=== PATIENT | male | born 1940 | race Caucasian/White ===

== ENCOUNTER 2016-08-21 13:22 | Outpatient (CLI) | payer MEDICARE, OTHER | END 2016-08-21 13:23 | disposition home or self-care (01) | DX: G47.33 Obstructive sleep apnea (adult) (pediatric) (principal); G47.31 Primary central sleep apnea | CPT/HCPCS: 99214; G0463 ==

== ENCOUNTER 2016-09-24 11:19 | Outpatient (CLI) | payer MEDICARE, OTHER | END 2016-09-24 11:20 | disposition home or self-care (01) | DX: G47.33 Obstructive sleep apnea (adult) (pediatric) (principal) | CPT/HCPCS: 99214; G0463 ==

== ENCOUNTER 2016-10-27 13:55 | Outpatient (CLI) | payer MEDICARE, OTHER | END 2016-10-27 13:56 | disposition home or self-care (01) | DX: G47.33 Obstructive sleep apnea (adult) (pediatric) (principal) | CPT/HCPCS: 99214; G0463 ==

== ENCOUNTER 2016-11-21 06:08 | Outpatient (CLI) | payer MEDICARE, OTHER | END 2016-11-21 06:09 | disposition critical access hospital (66) | DX: R09.89 Other specified symptoms and signs involving the circulatory and respiratory systems (principal); R25.9 Unspecified abnormal involuntary movements | CPT/HCPCS: A0425; A0429 ==

== ENCOUNTER 2016-11-21 06:30 | Emergency (ER) | payer MEDICARE, OTHER ==
[2016-11-21] MEDS ORDERED: SODIUM CHLORIDE 0.9% 500 ML IV ONE (08:17)
== END 2016-11-21 10:06 | disposition home or self-care (01) ==
DX: I48.2 Chronic atrial fibrillation (principal); Z79.01 Long term (current) use of anticoagulants; R00.2 Palpitations; G47.30 Sleep apnea, unspecified; I10 Essential (primary) hypertension; G20 Parkinson's disease; Z79.82 Long term (current) use of aspirin

== ENCOUNTER 2016-12-15 13:26 | Outpatient (CLI) | payer MEDICARE, OTHER | END 2016-12-15 13:27 | disposition home or self-care (01) | LOC: SC 13:26 | PROVIDERS: ATTEND Nurse Practitioner Family | DX: G47.33 Obstructive sleep apnea (adult) (pediatric) (principal) | CPT/HCPCS: 99214; G0463; 99212 ==

== ENCOUNTER 2017-01-21 14:54 | Outpatient (CLI) | payer MEDICARE, OTHER | END 2017-01-21 14:55 | disposition home or self-care (01) | LOC: SC 14:54 | PROVIDERS: ATTEND Nurse Practitioner Family | DX: G47.33 Obstructive sleep apnea (adult) (pediatric) (principal) | CPT/HCPCS: 99214; G0463; 99212 ==

== ENCOUNTER 2017-03-03 10:51 | Outpatient (CLI) | payer MEDICARE, OTHER | END 2017-03-03 10:52 | disposition home or self-care (01) | LOC: SC 10:51 | PROVIDERS: ATTEND Nurse Practitioner Family | DX: G47.33 Obstructive sleep apnea (adult) (pediatric) (principal); G47.31 Primary central sleep apnea; G47.00 Insomnia, unspecified | CPT/HCPCS: 99214; G0463; 99212 ==

== ENCOUNTER 2017-04-01 11:28 | Outpatient (CLI) | payer MEDICARE, OTHER | END 2017-04-01 11:29 | disposition home or self-care (01) | LOC: SC 11:28 | PROVIDERS: ATTEND Nurse Practitioner Family | DX: G47.33 Obstructive sleep apnea (adult) (pediatric) (principal) | CPT/HCPCS: 99214; G0463; 99212 ==

== ENCOUNTER 2017-06-01 15:22 | Outpatient (CLI) | payer MEDICARE, OTHER | END 2017-06-01 15:23 | disposition home or self-care (01) | LOC: SC 15:22 | PROVIDERS: ATTEND Nurse Practitioner Family | DX: G47.33 Obstructive sleep apnea (adult) (pediatric) (principal) | CPT/HCPCS: 99214; G0463; 99212 ==

== ENCOUNTER 2017-06-04 21:59 | Outpatient (CLI) | payer MEDICARE, OTHER | END 2017-06-04 22:00 | disposition home or self-care (01) | LOC: SC 21:59 | PROVIDERS: ATTEND Internal Medicine Pulmonary Disease | DX: G47.33 Obstructive sleep apnea (adult) (pediatric) (principal); Z68.28 Body mass index [BMI] 28.0-28.9, adult; I48.91 Unspecified atrial fibrillation | CPT/HCPCS: 95811 ==

== ENCOUNTER 2017-07-06 10:15 | Outpatient (CLI) | payer MEDICARE, OTHER | END 2017-07-06 10:16 | disposition home or self-care (01) | LOC: SC 10:15 | PROVIDERS: ATTEND Internal Medicine Pulmonary Disease | DX: G47.33 Obstructive sleep apnea (adult) (pediatric) (principal) | CPT/HCPCS: 99213; G0463; 99212 ==

== ENCOUNTER 2017-08-07 13:49 | Outpatient (CLI) | payer MEDICARE, OTHER ==
[2017-08-07 19:23] LABS: CALCIUM 9.6 mg/dL (8.5-10.3); CREATININE 1.1 mg/dL (0.6-1.2)
== END 2017-08-07 13:50 | disposition home or self-care (01) ==
LOC: LAB.WCP 13:49
PROVIDERS: ATTEND Internal Medicine Cardiovascular Disease
DX: I48.2 Chronic atrial fibrillation (principal)
CPT/HCPCS: 36415; 80048

== ENCOUNTER 2018-02-09 22:41 | Outpatient (CLI) | payer MEDICARE, OTHER | END 2018-02-09 22:42 | disposition critical access hospital (66) | LOC: EMS 22:41 | PROVIDERS: ATTEND Surgery | DX: R53.1 Weakness (principal); W07.XXXA Fall from chair, initial encounter; Y92.008 Other place in unspecified non-institutional (private) residence as the place of occurrence of the external cause | CPT/HCPCS: A0425; A0429 ==

== ENCOUNTER 2018-02-09 23:02 | Emergency (ER) | payer MEDICARE, OTHER ==
[2018-02-10 00:26] LABS: BASOPHILS # (AUTO) 0.1 10^3/uL (0.0-0.1); BASOPHILS % (AUTO) 0.7 %; EOSINOPHILS # (AUTO) 0.1 10^3/uL (0.0-0.7); EOSINOPHILS % (AUTO) 1.1 %; HGB - HEMOGLOBIN 12.2 g/dL (14.0-18.0); LYMPHOCYTES # (AUTO) 0.9 10^3/uL (1.5-3.5); LYMPHOCYTES % (AUTO) 9.4 %; MEAN CORPUSCULAR HEMOGLOBIN 31.5 pg (27.0-31.0); MEAN CORPUSCULAR HGB CONC 33.3 g/dL (32.0-36.0); MEAN CORPUSCULAR VOLUME 94.6 fL (80.0-94.0); MEAN PLATELET VOLUME 8.8 fL (7.4-11.4); MONOCYTES # (AUTO) 0.9 10^3/uL (0.0-1.0); MONOCYTES % (AUTO) 8.8 %; NEUTROPHILS # (AUTO) 8.1 10^3/uL (1.5-6.6); PLT - PLATELET COUNT 235 10^3/uL (130-450); RED BLOOD COUNT 3.89 10^6/uL (4.70-6.10); WHITE BLOOD COUNT 10.1 x10^3/uL (4.8-10.8)
[2018-02-10 00:33] LABS: ALBUMIN 3.6 g/dL (3.2-5.5); ALBUMIN/GLOBULIN RATIO 0.9 (1.0-2.2); ALKALINE PHOSPHATASE 73 IU/L (42-121); ALT ALANINE AMINOTRANSFERASE < 10 IU/L (10-60); AST ASPARTATE AMINOTRANSFERASE 31 IU/L (10-42); BILIRUBIN,TOTAL 0.6 mg/dL (0.2-1.0); BUN - BLOOD UREA NITROGEN 31 mg/dL (6-20); CALCIUM 9.1 mg/dL (8.5-10.3); CARBON DIOXIDE - CO2 30 mmol/L (21-32); CHLORIDE 99 mmol/L (101-111); CREATININE 1.8 mg/dL (0.6-1.2); GFR - MDRD 37 (>89); GLUCOSE 130 mg/dL (70-100); LIPASE 33 U/L (22-51); SODIUM 139 mmol/L (135-145); TOTAL PROTEIN 7.5 g/dL (6.7-8.2)
--- NOTE | 2018-02-10 01:14 | ED Physician Documentation ---
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 This evening, he was working in his house when he generalized increased shaking and weakness, particularly bilateral lower extremities. He rapidly became too weak to stand, sat down (did not fall). He could not get back up and thus 911 called by spouse. Review of Systems Constitutional: denies: Fever, Chills, Sweats Cardiac: reports: Reviewed and negative Respiratory: reports: Reviewed and negative GI: reports: Reviewed and negative : denies: Dysuria, Frequency Musculoskeletal: reports: Reviewed and negative Neurologic: reports: Generalized weakness. 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 INFORMATICS SPEC: Other (Radical Prostatectomy) Cardiovascular: Coronary stent - Present Medications Home Medications: Ambulatory Orders Medication Instructions Recorded Confirmed Aspirin [Aspir 81] 81 mg PO DAILY 12/29/12 11/21/16 Bumetanide [Bumex] 2 mg PO QDBREAKFAST 12/29/12 11/21/16 Carbidopa/Levodopa 0 mg PO TID 12/29/12 11/21/16 [Carbidopa-Levodopa 25-100 Tab] Metoprolol Succinate [Toprol Xl] 25 mg PO DAILY 12/29/12 11/21/16 Selegiline HCl 5 mg PO BID 12/29/12 11/21/16 Warfarin Sodium [Coumadin] 0.5 mg PO DAILY 12/29/12 11/21/16 raNITIdine [Zantac] 150 mg PO BID 03/17/14 11/21/16 Cholecalciferol (Vitamin D3) 1 cap PO DAILY 11/21/16 11/21/16 [Vitamin D3] Docusate Sodium 250Mg Capsule 1 cap PO DAILY 11/21/16 11/21/16 [Colace 250Mg Capsule] Senna [Senokot] 1 tab PO DAILY 11/21/16 11/21/16 Bumetanide [Bumex] 1 mg PO QDDINNER 02/10/18 02/10/18 - Allergies Allergies/Adverse Reactions: Allergies Allergy/AdvReac Type Severity Reaction Status Date / Time hydrochlorothiazide AdvReac Intermediate "drains Verified 02/10/18 01:46 all the fluid out of me" lisinopril AdvReac Intermediate cough/aches Verified 02/10/18 01:46 Penicillins AdvReac Edema Verified 02/10/18 01:46 simvastatin [From Zocor] AdvReac Unknown Verified 02/10/18 01:46 - Social History Does the pt smoke?: No Smoking Status: Never smoker Does the pt drink ETOH?: Yes Does the pt have substance abuse?: No - Immunizations Immunizations are current?: No - POLST Patient has POLST: No PD ED PE NORMAL - Vitals Vital signs reviewed: Yes - General General: Alert and oriented X 3, No acute distress, Well developed/nourished - HEENT HEENT: PERRL, EOMI, Other (dry mucous membranes) - Neck Neck: Supple, no meningeal sign - Cardiac Cardiac: RRR - Respiratory Respiratory: No respiratory distress, Clear bilaterally - Abdomen Abdomen: Soft, Non tender - Extremities Extremities: No edema - Neuro Neuro: Alert and oriented X 3, senior python developer 2-12 intact, Other (5/5 bilateral metal finisher strength, 4/5 bilateral dorsi/plantarflexion) Eye Opening: Spontaneous Motor: Obeys Commands Verbal: Oriented GCS Score: 15 Results - Vitals Vitals: Oxygen O2 Source [With Activity] Room air O2 Source Room air - Labs Labs: Laboratory Tests 02/10/18 02/10/18 02/10/18 00:09 00:09 00:09 WBC 10.1 RBC 3.89 L Hgb 12.2 L Hct 36.8 L MCV 94.6 H MCH 31.5 H MCHC 33.3 RDW 15.0 Plt Count 235 MPV 8.8 Neut # (Auto) 8.1 H Lymph # (Auto) 0.9 L [place] # (Auto) 0.9 Eos # (Auto) 0.1 Baso # (Auto) 0.1 Absolute Nucleated RBC 0.00 Nucleated RBC % 0.0 PT INR APTT Sodium 139 Potassium 3.8 Chloride 99 L Carbon Dioxide 30 Anion Gap 10.0 BUN 31 H Creatinine 1.8 H Estimated GFR (MDRD) 37 L Glucose 130 H Calcium 9.1 Magnesium 2.0 Total Bilirubin 0.6 AST 31 ALT < 10 L Alkaline Phosphatase 73 Troponin I < 0.04 B-Natriuretic Peptide Total Protein 7.5 Albumin 3.6 Globulin 3.9 Albumin/Globulin Ratio 0.9 L Lipase 33 Urine Color Urine Clarity Urine pH Ur Specific [place] Urine Protein Urine Glucose (UA) Urine Ketones Urine Occult Blood Urine Nitrite Urine Bilirubin Urine Urobilinogen Ur Leukocyte Esterase Ur Microscopic Review Urine Culture Comments 02/10/18 02/10/18 02/10/18 00:09 00:09 01:29 WBC RBC Hgb Hct MCV MCH MCHC RDW Plt Count MPV Neut # (Auto) Lymph # (Auto) [place] # (Auto) Eos # (Auto) Baso # (Auto) Absolute Nucleated RBC Nucleated RBC % PT 35.7 H INR 3.3 H APTT 32.0 Sodium Potassium Chloride Carbon Dioxide Anion Gap BUN Creatinine Estimated GFR (MDRD) Glucose Calcium Magnesium Total Bilirubin AST ALT Alkaline Phosphatase Troponin I B-Natriuretic Peptide 71 Total Protein Albumin Globulin Albumin/Globulin Ratio Lipase Urine Color YELLOW Urine Clarity CLEAR Urine pH 6.0 Ur Specific [place] 1.010 Urine Protein NEGATIVE Urine Glucose (UA) NEGATIVE Urine Ketones NEGATIVE Urine Occult Blood NEGATIVE Urine Nitrite NEGATIVE Urine Bilirubin NEGATIVE Urine Urobilinogen 0.2 (NORMAL) Ur Leukocyte Esterase NEGATIVE Ur Microscopic Review NOT INDICATED Urine Culture Comments NOT INDICATED PD MEDICAL DECISION MAKING - ED course Complexity details: reviewed results, re-evaluated patient, considered differential, d/w patient, d/w family ED course: patient improved during ED stay, seemed to correlate with IV fluids. mucous membranes were moist on reexam, and he was able to stand and bear weight and was at his baseline strength (per patient and spouse) on reevaluation. - Sepsis Event Vital Signs: Oxygen O2 Source [With Activity] Room air O2 Source Room air Departure - Departure Disposition: 01 Home, Self Care Clinical Impression: Weakness Condition: Good Instructions: ED Weakness [facility] Follow-Up: Rex Moncada MD [Primary Care Provider] - Discharge Date/Time: 02/10/18 03:17
[2018-02-10] MEDS ORDERED: SODIUM CHLORIDE 0.9% 1,000 ML IV STA (01:26)
[2018-02-10 01:39] LABS: BILIRUBIN,URINE NEGATIVE (NEGATIVE); GLUCOSE, URINE (UA) NEGATIVE (NEGATIVE); KETONES,URINE (UA) NEGATIVE (NEGATIVE); LEUKOCYTE ESTERASE, URINE NEGATIVE (NEGATIVE); NITRITE,URINE NEGATIVE (NEGATIVE); OCCULT BLOOD,URINE NEGATIVE (NEGATIVE); PROTEIN,URINE NEGATIVE (NEGATIVE); UROBILINOGEN,URINE 0.2 (NORMAL) E.U./dL (NORMAL)
[2018-02-10 01:40] LABS: CLARITY,URINE CLEAR (CLEAR)
[2018-02-10 01:41] LABS: INR 3.3 (0.8-1.2); PT - PROTHROMBIN TIME 35.7 secs (9.9-12.6)
[2018-02-10 03:16] VITALS: BP 167/72
== END 2018-02-10 03:17 | disposition home or self-care (01) ==
LOC: EDUNIT# → SUPCPDRO 23:02 → ED 23:02
DX: R53.1 Weakness (principal); G20 Parkinson's disease; I10 Essential (primary) hypertension; Z79.01 Long term (current) use of anticoagulants; Z79.82 Long term (current) use of aspirin; I48.91 Unspecified atrial fibrillation
CPT/HCPCS: 36415; 80053; 81001; 81003; 83690; 83735; 83880; 84484; 85025; 85610; 85730; 87086; 96360; 99283; 99284

== ENCOUNTER 2018-04-19 11:24 | Outpatient (CLI) | payer MEDICARE, OTHER | END 2018-04-19 11:25 | disposition short-term general hospital (02) | LOC: EMS 11:24 | PROVIDERS: ATTEND Surgery | DX: R07.9 Chest pain, unspecified (principal) | CPT/HCPCS: A0425; A0427; A0888 ==

== ENCOUNTER 2018-10-13 08:00 | Outpatient (CLI) | payer MEDICARE, OTHER | END 2018-10-13 23:59 | disposition home or self-care (01) | LOC: LAB.WCP 08:00 | PROVIDERS: ATTEND Family Medicine | DX: I48.91 Unspecified atrial fibrillation (principal); Z79.01 Long term (current) use of anticoagulants ==

== ENCOUNTER 2018-11-17 08:00 | Outpatient (CLI) | payer MEDICARE, OTHER ==
[2018-11-17 12:28] LABS: BASOPHILS % (AUTO) 0.5 %; EOSINOPHILS # (AUTO) 0.2 10^3/uL (0.0-0.7); EOSINOPHILS % (AUTO) 2.9 %; HGB - HEMOGLOBIN 12.5 g/dL (14.0-18.0); LYMPHOCYTES # (AUTO) 1.6 10^3/uL (1.5-3.5); LYMPHOCYTES % (AUTO) 23.1 %; MEAN CORPUSCULAR HEMOGLOBIN 30.6 pg (27.0-31.0); MEAN CORPUSCULAR HGB CONC 32.9 g/dL (32.0-36.0); MEAN PLATELET VOLUME 8.4 fL (7.4-11.4); MONOCYTES # (AUTO) 0.6 10^3/uL (0.0-1.0); MONOCYTES % (AUTO) 9.1 %; NEUTROPHILS # (AUTO) 4.6 10^3/uL (1.5-6.6); NEUTROPHILS % (AUTO) 64.4 %; PLT - PLATELET COUNT 240 10^3/uL (130-450); WHITE BLOOD COUNT 7.1 x10^3/uL (4.8-10.8)
[2018-11-17 13:39] LABS: ALBUMIN 3.7 g/dL (3.2-5.5); ALKALINE PHOSPHATASE 71 IU/L (42-121); ALT ALANINE AMINOTRANSFERASE < 10 IU/L (10-60); AST ASPARTATE AMINOTRANSFERASE 21 IU/L (10-42); BILIRUBIN,TOTAL 0.8 mg/dL (0.2-1.0); BUN - BLOOD UREA NITROGEN 25 mg/dL (6-20); CALCIUM 9.1 mg/dL (8.5-10.3); CARBON DIOXIDE - CO2 33 mmol/L (21-32); CHLORIDE 98 mmol/L (101-111); CHOL/HDL RATIO 3.2 (<5.0); CHOLESTEROL 174 mg/dL; CREATININE 1.1 mg/dL (0.6-1.2); GFR - MDRD 64 (>89); GLUCOSE 101 mg/dL (70-100); HDL CHOLESTEROL 54 mg/dL; LDL CHOLESTEROL,CALCULATED 97 mg/dL; LDL/HDL RATIO 1.8 (<3.6); SODIUM 138 mmol/L (135-145); TOTAL PROTEIN 7.4 g/dL (6.7-8.2); VLDL CHOLESTEROL 23 mg/dL
== END 2018-11-17 23:59 | disposition home or self-care (01) ==
LOC: LAB.WCP 08:00
PROVIDERS: ATTEND Family Medicine
DX: E78.5 Hyperlipidemia, unspecified (principal); I10 Essential (primary) hypertension
CPT/HCPCS: 36415; 80053; 80061; 83721; 85025

== ENCOUNTER 2018-12-07 09:16 | Outpatient (CLI) | payer MEDICARE, OTHER ==
[2018-12-07 12:39] LABS: BASOPHILS % (AUTO) 0.5 %; EOSINOPHILS # (AUTO) 0.3 10^3/uL (0.0-0.7); HGB - HEMOGLOBIN 12.4 g/dL (14.0-18.0); LYMPHOCYTES # (AUTO) 1.8 10^3/uL (1.5-3.5); LYMPHOCYTES % (AUTO) 25.6 %; MEAN CORPUSCULAR HEMOGLOBIN 30.5 pg (27.0-31.0); MEAN CORPUSCULAR HGB CONC 32.8 g/dL (32.0-36.0); MEAN CORPUSCULAR VOLUME 92.7 fL (80.0-94.0); MEAN PLATELET VOLUME 8.5 fL (7.4-11.4); MONOCYTES # (AUTO) 0.8 10^3/uL (0.0-1.0); MONOCYTES % (AUTO) 11.8 %; NEUTROPHILS % (AUTO) 58.1 %; PLT - PLATELET COUNT 257 10^3/uL (130-450); RED BLOOD COUNT 4.07 10^6/uL (4.70-6.10); RED CELL DISTRIBUTION WIDTH 15.1 % (12.0-15.0)
[2018-12-07 12:59] LABS: % IRON SATURATION 25 % (20-50); IRON 71 ug/dL (45-182); TOTAL IRON BINDING CAPACITY 281 ug/dL (250-450); TRANSFERRIN 201 mg/dL (180-329)
== END 2018-12-07 09:17 | disposition home or self-care (01) ==
LOC: LAB.WCP 09:16
PROVIDERS: ATTEND Family Medicine
DX: D64.9 Anemia, unspecified (principal); M79.671 Pain in right foot; R26.2 Difficulty in walking, not elsewhere classified; M25.474 Effusion, right foot
CPT/HCPCS: 36415; 82607; 82728; 82746; 83540; 84466; 84550; 85025

== ENCOUNTER 2018-12-16 07:09 | Outpatient (CLI) | payer MEDICARE, OTHER | END 2018-12-16 23:59 | disposition home or self-care (01) | LOC: LAB.R 07:09 | PROVIDERS: ATTEND Family Medicine | DX: Z12.11 Encounter for screening for malignant neoplasm of colon (principal) | CPT/HCPCS: 82274 ==

== ENCOUNTER 2019-03-18 08:00 | Outpatient (CLI) | payer MEDICARE, OTHER | END 2019-03-18 23:59 | disposition home or self-care (01) | LOC: LAB.WCP 08:00 | PROVIDERS: ATTEND Family Medicine | DX: I48.91 Unspecified atrial fibrillation (principal); Z79.01 Long term (current) use of anticoagulants ==

== ENCOUNTER 2019-04-08 08:00 | Outpatient (CLI) | payer MEDICARE, OTHER | END 2019-04-08 23:59 | disposition home or self-care (01) | LOC: LAB.WCP 08:00 | PROVIDERS: ATTEND Family Medicine | DX: I48.91 Unspecified atrial fibrillation (principal); Z79.01 Long term (current) use of anticoagulants ==

== ENCOUNTER 2019-05-09 08:00 | Outpatient (CLI) | payer MEDICARE, OTHER | END 2019-05-09 23:59 | disposition home or self-care (01) | LOC: LAB.WCP 08:00 | PROVIDERS: ATTEND Physician Assistant Medical | DX: I48.91 Unspecified atrial fibrillation (principal); Z79.01 Long term (current) use of anticoagulants ==

== ENCOUNTER 2019-06-09 08:00 | Outpatient (CLI) | payer MEDICARE, OTHER | END 2019-06-09 23:59 | disposition home or self-care (01) | LOC: LAB.WCP 08:00 | PROVIDERS: ATTEND Physician Assistant Medical | DX: I48.91 Unspecified atrial fibrillation (principal); Z79.01 Long term (current) use of anticoagulants ==

== ENCOUNTER 2019-07-05 08:00 | Outpatient (CLI) | payer MEDICARE, OTHER | END 2019-07-05 23:59 | disposition home or self-care (01) | LOC: LAB.WCP 08:00 | PROVIDERS: ATTEND Physician Assistant Medical | DX: I48.91 Unspecified atrial fibrillation (principal); Z79.01 Long term (current) use of anticoagulants ==

== ENCOUNTER 2019-07-21 15:00 | Outpatient (CLI) | payer MEDICARE, OTHER ==
[2019-07-21 18:56] LABS: BASOPHILS # (AUTO) 0.1 10^3/uL (0.0-0.1); BASOPHILS % (AUTO) 0.8 %; EOSINOPHILS # (AUTO) 0.2 10^3/uL (0.0-0.7); EOSINOPHILS % (AUTO) 2.8 %; HGB - HEMOGLOBIN 12.2 g/dL (14.0-18.0); LYMPHOCYTES # (AUTO) 1.6 10^3/uL (1.5-3.5); LYMPHOCYTES % (AUTO) 21.9 %; MEAN CORPUSCULAR HEMOGLOBIN 30.3 pg (27.0-31.0); MEAN CORPUSCULAR HGB CONC 31.9 g/dL (32.0-36.0); MEAN CORPUSCULAR VOLUME 94.8 fL (80.0-94.0); MEAN PLATELET VOLUME 10.6 fL (7.4-11.4); MONOCYTES # (AUTO) 0.7 10^3/uL (0.0-1.0); NEUTROPHILS # (AUTO) 4.7 10^3/uL (1.5-6.6); NEUTROPHILS % (AUTO) 64.1 %; PLT - PLATELET COUNT 225 10^3/uL (130-450); RED BLOOD COUNT 4.03 10^6/uL (4.70-6.10); RED CELL DISTRIBUTION WIDTH 14.5 % (12.0-15.0); WHITE BLOOD COUNT 7.4 x10^3/uL (4.8-10.8)
== END 2019-07-21 23:59 | disposition home or self-care (01) ==
LOC: LAB.WCP 15:00
PROVIDERS: ATTEND Physician Assistant Medical
DX: D64.9 Anemia, unspecified (principal)
CPT/HCPCS: 36415; 85025

== ENCOUNTER 2019-08-01 08:00 | Outpatient (CLI) | payer MEDICARE, OTHER | END 2019-08-01 23:59 | disposition home or self-care (01) | LOC: LAB.WCP 08:00 | PROVIDERS: ATTEND Physician Assistant Medical | DX: I48.91 Unspecified atrial fibrillation (principal); Z79.01 Long term (current) use of anticoagulants ==

== ENCOUNTER 2019-08-29 08:00 | Outpatient (CLI) | payer MEDICARE, OTHER | END 2019-08-29 23:59 | disposition home or self-care (01) | LOC: LAB.WCP 08:00 | PROVIDERS: ATTEND Physician Assistant Medical | DX: Z79.01 Long term (current) use of anticoagulants (principal); I48.91 Unspecified atrial fibrillation ==

== ENCOUNTER 2019-09-09 15:08 | Outpatient (CLI) | payer MEDICARE, OTHER | END 2019-09-09 15:09 | disposition critical access hospital (66) | LOC: EMS 15:08 | PROVIDERS: ATTEND Surgery | DX: R42 Dizziness and giddiness (principal); R07.9 Chest pain, unspecified | CPT/HCPCS: A0425; A0429 ==

== ENCOUNTER 2019-09-09 15:30 | Emergency (ER) | payer MEDICARE, OTHER ==
[2019-09-09] MEDS ORDERED: ASPIRIN CHEW 81 MG TABLET PO STA (15:44)
--- NOTE | 2019-09-09 15:47 | ED Physician Documentation ---
PD HPI CHEST PAIN - Stated complaint Stated Complaint: NEAR SYNCOPE - Chief complaint Chief Complaint: Neuro - History obtained from History obtained from: Patient (79-year-old gentleman with history of atrial fibrillation on warfarin, history of coronary disease with a single stent in the LAD about 5 years ago. He was in his usual state of health at home on the toilet when he started to have about a 20-minute episode of left-sided subste rnal chest pressure that was nonradiating. It was associated with dizziness and near syncope. Now feels back to normal.) Review of Systems Ten Systems: 10 systems reviewed and negative Constitutional: denies: Fever, Chills Throat: denies: Dental pain / toothache, Sore throat Cardiac: reports: Chest pain / pressure, Pedal edema (chronic). 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 (Radical Prostatectomy) Cardiovascular: Coronary stent - Present Medications Home Medications: Ambulatory Orders Medication Instructions Recorded Confirmed Aspirin [Aspir 81] 81 mg PO DAILY 12/29/12 09/09/19 Bumetanide [Bumex] 2 mg PO QDBREAKFAST 12/29/12 09/09/19 Carbidopa/Levodopa 0 mg PO TID 12/29/12 09/09/19 [Carbidopa-Levodopa 25-100 Tab] Metoprolol Succinate [Toprol Xl] 25 mg PO DAILY 12/29/12 09/09/19 Selegiline HCl 5 mg PO BID 12/29/12 09/09/19 Warfarin Sodium [Coumadin] 0.5 mg PO DAILY 12/29/12 09/09/19 raNITIdine [Zantac] 150 mg PO BID 03/17/14 09/09/19 Cholecalciferol (Vitamin D3) 1 cap PO DAILY 11/21/16 09/09/19 [Vitamin D3] Docusate Sodium 250Mg Capsule 1 cap PO DAILY 11/21/16 09/09/19 [Colace 250Mg Capsule] Senna [Senokot] 1 tab PO DAILY 11/21/16 09/09/19 Bumetanide [Bumex] 1 mg PO QDDINNER 02/10/18 02/10/18 Nitroglycerin [Nitrostat] 0.4 mg SL 09/09/19 Potassium Chloride [Micro-K] 10 meq PO 09/09/19 Tolterodine [Detrol LA] 2 mg PO ONCE 09/09/19 09/09/19 - Allergies Allergies/Adverse Reactions: Allergies Allergy/AdvReac Type Severity Reaction Status Date / Time hydrochlorothiazide AdvReac Intermediate "drains Verified 09/09/19 15:42 all the fluid out of me" lisinopril AdvReac Intermediate cough/aches Verified 09/09/19 15:42 Penicillins AdvReac Edema Verified 09/09/19 15:42 simvastatin [From Zocor] AdvReac Unknown Verified 09/09/19 15:42 - Social History Does the pt smoke?: No Smoking Status: Never smoker Does the pt drink ETOH?: Yes Does the pt have substance abuse?: No - Family History Family history: reports: Non contributory - Immunizations Immunizations are current?: No - POLST Patient has POLST: No PD ED PE NORMAL - Vitals Vital signs reviewed: Yes - General General: Alert and oriented X 3, No acute distress - HEENT HEENT: PERRL, EOMI - Neck Neck: Supple, no meningeal sign, No bony TTP - Cardiac Cardiac: No murmur, Other (Irregularly irregular) - Respiratory Respiratory: No respiratory distress, Clear bilaterally - Abdomen Abdomen: Non tender - Back Back: No CVA TTP, No spinal TTP - Derm Derm: Normal color, Warm and dry - Extremities Extremities: Other (Mild to moderate bilateral pitting pedal edema, symmetric without tenderness) - Neuro Neuro: Alert and oriented X 3, Normal speech Results - Vitals Vitals: Vital Signs - 24 hr 09/09/19 09/09/19 15:38 15:42 Temperature 36.5 C 36.5 C Heart Rate 64 64 Respiratory 16 16 Rate Blood Pressure 171/71 H 171/71 H O2 Saturation 96 96 Oxygen O2 Source [] Room air O2 Source Room air - EKG (time done) 1546 Rate: Rate (enter#) (68) Rhythm: Atrial fibrillation [place]: Normal QRS: Normal Ischemia: Q waves (anterior). No: ST elevation c/w ischemia, ST depression Computer interpretation: Agree with computer - Labs Labs: Laboratory Tests 09/09/19 09/09/19 09/09/19 15:54 15:54 15:54 WBC 8.0 RBC 4.56 L Hgb 13.4 L Hct 42.2 MCV 92.5 MCH 29.4 MCHC 31.8 L RDW 14.1 Plt Count 222 MPV 10.1 Neut # (Auto) 5.5 Lymph # (Auto) 1.5 [place] # (Auto) 0.7 Eos # (Auto) 0.3 Baso # (Auto) 0.0 Absolute Nucleated RBC 0.00 Nucleated RBC % 0.0 PT 28.5 H INR 2.6 H Sodium 136 Potassium 3.4 L Chloride 92 L Carbon Dioxide 32 Anion Gap 12.0 BUN 30 H Creatinine 1.6 H Estimated GFR (MDRD) 42 L Glucose 135 H Calcium 9.0 Total Bilirubin 0.9 AST 21 ALT < 10 L Alkaline Phosphatase 66 Troponin I High Sens B-Natriuretic Peptide Total Protein 7.4 Albumin 3.9 Globulin 3.5 Albumin/Globulin Ratio 1.1 Lipase 31 09/09/19 09/09/19 09/09/19 15:54 15:54 17:55 WBC RBC Hgb Hct MCV MCH MCHC RDW Plt Count MPV Neut # (Auto) Lymph # (Auto) [place] # (Auto) Eos # (Auto) Baso # (Auto) Absolute Nucleated RBC Nucleated RBC % PT INR Sodium Potassium Chloride Carbon Dioxide Anion Gap BUN Creatinine Estimated GFR (MDRD) Glucose Calcium Total Bilirubin AST ALT Alkaline Phosphatase Troponin I High Sens 15.3 15.0 B-Natriuretic Peptide 96 Total Protein Albumin Globulin Albumin/Globulin Ratio Lipase PD MEDICAL DECISION MAKING - ED course ED course: 79-year-old gentleman who presents after an episode of chest pain with near syncope, he is asymptomatic here. His EKG is nonischemic, 2 troponins were done in the department which were both in normal range and negative without delta change. He remained is asymptomatic during observation period in the department. Close follow-up was advised. Departure - Departure Disposition: 01 Home, Self Care Clinical Impression: Dizziness Chest pain Qualifiers: Chest pain type: unspecified Qualified Code(s): R07.9 - Chest pain, unspecified Condition: Good Record reviewed to determine appropriate education?: Yes Instructions: ED Chest Pain Atypical Unkn Cause Comments: You were seen here today for an episode of chest pain and dizziness without completely passing out. Your work-up here was negative with no evidence of an acute coronary syndrome or or other dangerous process. That said you should follow-up closely with your personal physician as well as your founder for further evaluation and treatment. Return if any of your symptoms recur.
[2019-09-09 16:00] LABS: BASOPHILS % (AUTO) 0.5 %; EOSINOPHILS # (AUTO) 0.3 10^3/uL (0.0-0.7); EOSINOPHILS % (AUTO) 3.1 %; HGB - HEMOGLOBIN 13.4 g/dL (14.0-18.0); LYMPHOCYTES # (AUTO) 1.5 10^3/uL (1.5-3.5); LYMPHOCYTES % (AUTO) 18.5 %; MEAN CORPUSCULAR HEMOGLOBIN 29.4 pg (27.0-31.0); MEAN CORPUSCULAR HGB CONC 31.8 g/dL (32.0-36.0); MEAN CORPUSCULAR VOLUME 92.5 fL (80.0-94.0); MEAN PLATELET VOLUME 10.1 fL (7.4-11.4); MONOCYTES # (AUTO) 0.7 10^3/uL (0.0-1.0); MONOCYTES % (AUTO) 8.2 %; NEUTROPHILS # (AUTO) 5.5 10^3/uL (1.5-6.6); NEUTROPHILS % (AUTO) 69.2 %; PLT - PLATELET COUNT 222 10^3/uL (130-450); RED BLOOD COUNT 4.56 10^6/uL (4.70-6.10); RED CELL DISTRIBUTION WIDTH 14.1 % (12.0-15.0)
[2019-09-09 16:04] LABS: INR 2.6 (0.8-1.2); PT - PROTHROMBIN TIME 28.5 secs (9.9-12.6)
--- NOTE | 2019-09-09 16:10 | XRAY Report ---
Reason: chest pain Procedure Date: 09/09/2019 Accession Number: [id number] / [id number] Procedure: XR - Chest 1 View X-Ray CPT Code: 91466 Final Report FULL RESULT: EXAM: CHEST RADIOGRAPHY EXAM DATE: 09/09/2019 03:52 PM. CLINICAL HISTORY: Chest pain. COMPARISON: CHEST 1 VIEW 11/21/2016 7:06 AM CHEST 1 VIEW 12/21/2015 6:08 AM CHEST 2 VIEW PA/LAT 12/19/2015 3:25 PM. TECHNIQUE: 1 view. FINDINGS: Lungs/Pleura: No focal consolidation or evidence of edema. No pleural effusion or pneumothorax. Mediastinum: Heart size is normal. Cardiac stent material noted. The aorta is mildly tortuous, as before. Atherosclerotic calcifications within the aortic arch. Other: The bones are unremarkable. IMPRESSION: No acute cardiopulmonary abnormality. RADIA
[2019-09-09 16:28] LABS: ALBUMIN 3.9 g/dL (3.2-5.5); ALBUMIN/GLOBULIN RATIO 1.1 (1.0-2.2); ALKALINE PHOSPHATASE 66 IU/L (42-121); ALT ALANINE AMINOTRANSFERASE < 10 IU/L (10-60); AST ASPARTATE AMINOTRANSFERASE 21 IU/L (10-42); BILIRUBIN,TOTAL 0.9 mg/dL (0.2-1.0); BUN - BLOOD UREA NITROGEN 30 mg/dL (6-20); CARBON DIOXIDE - CO2 32 mmol/L (21-32); CHLORIDE 92 mmol/L (101-111); CREATININE 1.6 mg/dL (0.6-1.2); GFR - MDRD 42 (>89); GLUCOSE 135 mg/dL (70-100); LIPASE 31 U/L (22-51); SODIUM 136 mmol/L (135-145); TOTAL PROTEIN 7.4 g/dL (6.7-8.2)
[2019-09-09 18:33] VITALS: BP 138/62
== END 2019-09-09 19:16 | disposition home or self-care (01) ==
LOC: EDUNIT# → ED 15:30
DX: R55 Syncope and collapse (principal); R07.9 Chest pain, unspecified; R42 Dizziness and giddiness; I10 Essential (primary) hypertension
CPT/HCPCS: 36415; 71045; 80053; 83690; 83880; 84484; 85025; 85610; 93005; 99284; A9270

== ENCOUNTER 2019-09-22 20:04 | Outpatient (CLI) | payer MEDICARE, OTHER ==
[2019-09-22 19:02] LABS: CALCIUM 9.4 mg/dL (8.5-10.3); CREATININE 1.4 mg/dL (0.6-1.2)
== END 2019-09-22 23:59 | disposition home or self-care (01) ==
LOC: LAB.WCP 20:04
PROVIDERS: ATTEND Physician Assistant Medical
DX: I10 Essential (primary) hypertension (principal)
CPT/HCPCS: 36415; 80048

== ENCOUNTER 2019-09-23 21:53 | Outpatient (CLI) | payer MEDICARE, OTHER | END 2019-09-23 21:54 | disposition short-term general hospital (02) | LOC: EMS 21:53 | PROVIDERS: ATTEND Surgery | DX: R42 Dizziness and giddiness (principal); R53.1 Weakness; R10.9 Unspecified abdominal pain; R11.0 Nausea | CPT/HCPCS: A0425; A0427 ==

== ENCOUNTER 2019-11-14 08:00 | Outpatient (CLI) | payer MEDICARE, OTHER | END 2019-11-14 23:59 | disposition home or self-care (01) | LOC: LAB.WCP 08:00 | PROVIDERS: ATTEND Physician Assistant Medical | DX: I48.91 Unspecified atrial fibrillation (principal); Z79.01 Long term (current) use of anticoagulants ==

== ENCOUNTER 2019-11-22 08:00 | Outpatient (CLI) | payer MEDICARE, OTHER | END 2019-11-22 23:59 | disposition home or self-care (01) | LOC: LAB.WCP 08:00 | PROVIDERS: ATTEND Physician Assistant Medical | DX: I48.91 Unspecified atrial fibrillation (principal); Z79.01 Long term (current) use of anticoagulants ==

== ENCOUNTER 2019-12-07 08:00 | Outpatient (CLI) | payer MEDICARE, OTHER | END 2019-12-07 23:59 | disposition home or self-care (01) | LOC: LAB.WCP 08:00 | PROVIDERS: ATTEND Physician Assistant Medical | DX: I48.91 Unspecified atrial fibrillation (principal); Z79.01 Long term (current) use of anticoagulants ==

== ENCOUNTER 2020-01-04 08:00 | Outpatient (CLI) | payer MEDICARE, OTHER | END 2020-01-04 23:59 | disposition home or self-care (01) | LOC: LAB.WCP 08:00 | PROVIDERS: ATTEND Physician Assistant Medical | DX: I48.91 Unspecified atrial fibrillation (principal); Z79.01 Long term (current) use of anticoagulants; I50.9 Heart failure, unspecified ==

== ENCOUNTER 2020-01-18 08:00 | Outpatient (CLI) | payer MEDICARE, OTHER | END 2020-01-18 23:59 | disposition home or self-care (01) | LOC: LAB.WCP 08:00 | PROVIDERS: ATTEND Physician Assistant Medical | DX: I48.91 Unspecified atrial fibrillation (principal); Z79.01 Long term (current) use of anticoagulants ==

== ENCOUNTER 2020-01-27 23:33 | Outpatient (CLI) | payer MEDICARE, OTHER | END 2020-01-27 23:34 | disposition critical access hospital (66) | LOC: EMS 23:33 | PROVIDERS: ATTEND Surgery | DX: S09.90XA Unspecified injury of head, initial encounter (principal); W18.11XA Fall from or off toilet without subsequent striking against object, initial encounter; Y92.002 Bathroom of unspecified non-institutional (private) residence as the place of occurrence of the external cause | CPT/HCPCS: A0425; A0429 ==

== ENCOUNTER 2020-01-27 23:54 | Emergency (ER) | payer MEDICARE, OTHER ==
--- NOTE | 2020-01-27 23:51 | ED Physician Documentation ---
PD HPI HEAD INJURY - Stated complaint Stated Complaint: GLF - History obtained from History obtained from: Patient (Patient is an 79-year-old male brought in by ambulance after he was sitting on the toilet and then woke up on the floor. EMS reports he has a forehead hematoma and he is on warfarin.The patient denies any complaints currently. The patient does not remember what happened.), EMS, Other (Patient reports she had a pacemaker placed yesterday at [facility] in [place] by dr. akbar smart.) Review of Systems Constitutional: reports: Reviewed and negative Eyes: reports: Reviewed and negative Ears: reports: Reviewed and negative Nose: reports: Reviewed and negative Throat: reports: Reviewed and negative Cardiac: reports: Reviewed and negative Respiratory: reports: Reviewed and negative GI: reports: Reviewed and negative : reports: Reviewed and negative Skin: reports: Reviewed and negative Musculoskeletal: reports: Reviewed and negative Neurologic: reports: Syncope Psychiatric: reports: Reviewed and negative Endocrine: reports: Reviewed and negative Immunocompromised: reports: Reviewed and negative PD PAST MEDICAL HISTORY - Present Medications Home Medications: Ambulatory Orders Medication Instructions Recorded Confirmed Aspirin [Aspir 81] 81 mg PO DAILY 12/29/12 09/09/19 Bumetanide [Bumex] 2 mg PO QDBREAKFAST 12/29/12 09/09/19 Metoprolol Succinate [Toprol Xl] 25 mg PO DAILY 12/29/12 01/28/20 Selegiline HCl 5 mg PO BID 12/29/12 01/28/20 Warfarin Sodium [Coumadin] 5 mg PO DAILY 12/29/12 01/28/20 Cholecalciferol (Vitamin D3) 1 cap PO DAILY 11/21/16 09/09/19 [Vitamin D3] Docusate Sodium 250Mg Capsule 1 cap PO DAILY 11/21/16 09/09/19 [Colace 250Mg Capsule] Senna [Senokot] 1 tab PO DAILY 11/21/16 01/28/20 Nitroglycerin [Nitrostat] 0.4 mg SL DAILY 09/09/19 01/28/20 Potassium Chloride [Micro-K] 10 meq PO BID 09/09/19 01/28/20 Tolterodine [Detrol LA] 2 mg PO ONCE 09/09/19 01/28/20 - Allergies Allergies/Adverse Reactions: Allergies Allergy/AdvReac Type Severity Reaction Status Date / Time hydrochlorothiazide AdvReac Intermediate "drains Verified 09/09/19 15:42 all the fluid out of me" lisinopril AdvReac Intermediate cough/aches Verified 09/09/19 15:42 Penicillins AdvReac Edema Verified 09/09/19 15:42 simvastatin [From Zocor] AdvReac Unknown Verified 09/09/19 15:42 PD ED PE NORMAL - Vitals Vital signs reviewed: Yes - General General: Alert and oriented X 3, No acute distress, Well developed/nourished - HEENT HEENT: PERRL, Other (There is a superficial abrasion on the forehead there is no lacerations there is no hematoma no septal hematoma no acute missing teeth no raccoon eyes no starr sign no hemotympanum) - Neck Neck: Supple, no meningeal sign, No JVD, No bruit - Cardiac Cardiac: RRR, No murmur - Respiratory Respiratory: No respiratory distress, Clear bilaterally - Abdomen Abdomen: Normal bowel sounds, Soft, Non tender, Non distended - Derm Derm: Warm and dry - Extremities Extremities: No deformity, No tenderness to palpate, Normal ROM s pain, No edema, No calf tenderness / cord - Neuro Neuro: Alert and oriented X 3, 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, No motor deficit, No sensory deficit, Normal speech - Psych Psych: Normal mood, Normal affect Results - Vitals Vitals: Vital Signs - 24 hr 01/27/20 01/28/20 01/28/20 23:57 00:02 00:58 Temperature Heart Rate 57 L 64 57 L Respiratory 13 16 15 Rate Blood Pressure 178/78 H 158/67 H 157/58 H O2 Saturation 99 100 100 01/28/20 01:33 Temperature 36.9 C Heart Rate 50 L Respiratory 19 Rate Blood Pressure 136/53 H O2 Saturation 99 Oxygen O2 Source [] Room air O2 Source Room air - EKG (time done) 00:06 Rate: Other (No STEMI) - Labs Labs: Laboratory Tests 01/28/20 01/28/20 01/28/20 00:00 00:00 00:00 WBC 7.2 RBC 3.69 L Hgb 11.3 L Hct 35.1 L MCV 95.1 H MCH 30.6 MCHC 32.2 RDW 14.3 Plt Count 224 MPV 10.1 Neut # (Auto) 4.0 Lymph # (Auto) 1.9 [place] # (Auto) 0.9 Eos # (Auto) 0.4 Baso # (Auto) 0.1 Absolute Nucleated RBC 0.00 Nucleated RBC % 0.0 PT 16.9 H INR 1.5 H APTT 31.8 Sodium 139 Potassium 3.4 L Chloride 98 L Carbon Dioxide 31 Anion Gap 10.0 BUN 36 H Creatinine 1.5 H Estimated GFR (MDRD) 45 L Glucose 120 H Calcium 8.7 Magnesium 2.0 Total Bilirubin 0.5 AST 20 ALT < 10 L Alkaline Phosphatase 72 CK-MB (CK-2) Troponin I High Sens B-Natriuretic Peptide Total Protein 7.4 Albumin 3.7 Globulin 3.7 Albumin/Globulin Ratio 1.0 Lipase 41 Urine Color Urine Clarity Urine pH Ur Specific [place] Urine Protein Urine Glucose (UA) Urine Ketones Urine Occult Blood Urine Nitrite Urine Bilirubin Urine Urobilinogen Ur Leukocyte Esterase Ur Microscopic Review Urine Culture Comments Ethyl Alcohol < 5.0 01/28/20 01/28/20 01/28/20 00:00 00:00 00:00 WBC RBC Hgb Hct MCV MCH MCHC RDW Plt Count MPV Neut # (Auto) Lymph # (Auto) [place] # (Auto) Eos # (Auto) Baso # (Auto) Absolute Nucleated RBC Nucleated RBC % PT INR APTT Sodium Potassium Chloride Carbon Dioxide Anion Gap BUN Creatinine Estimated GFR (MDRD) Glucose Calcium Magnesium Total Bilirubin AST ALT Alkaline Phosphatase CK-MB (CK-2) 1.5 Troponin I High Sens 80.0 H* B-Natriuretic Peptide 125 H Total Protein Albumin Globulin Albumin/Globulin Ratio Lipase Urine Color Urine Clarity Urine pH Ur Specific [place] Urine Protein Urine Glucose (UA) Urine Ketones Urine Occult Blood Urine Nitrite Urine Bilirubin Urine Urobilinogen Ur Leukocyte Esterase Ur Microscopic Review Urine Culture Comments Ethyl Alcohol 01/28/20 00:55 WBC RBC Hgb Hct MCV MCH MCHC RDW Plt Count MPV Neut # (Auto) Lymph # (Auto) [place] # (Auto) Eos # (Auto) Baso # (Auto) Absolute Nucleated RBC Nucleated RBC % PT INR APTT Sodium Potassium Chloride Carbon Dioxide Anion Gap BUN Creatinine Estimated GFR (MDRD) Glucose Calcium Magnesium Total Bilirubin AST ALT Alkaline Phosphatase CK-MB (CK-2) Troponin I High Sens B-Natriuretic Peptide Total Protein Albumin Globulin Albumin/Globulin Ratio Lipase Urine Color YELLOW Urine Clarity CLEAR Urine pH 6.5 Ur Specific [place] 1.015 Urine Protein NEGATIVE Urine Glucose (UA) NEGATIVE Urine Ketones NEGATIVE Urine Occult Blood NEGATIVE Urine Nitrite NEGATIVE Urine Bilirubin NEGATIVE Urine Urobilinogen 0.2 (NORMAL) Ur Leukocyte Esterase NEGATIVE Ur Microscopic Review NOT INDICATED Urine Culture Comments NOT INDICATED Ethyl Alcohol PD MEDICAL DECISION MAKING - ED course Complexity details: reviewed results, re-evaluated patient, considered differential (Syncope, closed head injury), d/w patient, d/w family - Consults Consults: Discussed case with (Case discussed with Dr. Castro, solution spec who will accpet this patient in transfer, wants this patient transferred to [facility] in [place]. Spoke with Dr. Son the hospitalist who agreed to accept this patient.) - Critical Care Time(min): 30 Time Includes: Direct patient care, Review records, Reassess patient, Document care, Coordinate care, Medical consult, Family consult for tx dec Data interpretation: Labs, CXR, Prior EKG Procedures included in critical care time: Peripheral IV Procedures excluded from critical care time: EKG Departure - Departure Disposition: 02 Transfer Acute Care Hosp Clinical Impression: Elevated troponin, Bradycardia Syncope Qualifiers: Syncope type: unspecified Qualified Code(s): R55 - Syncope and collapse Condition: Stable
[2020-01-28 00:13] LABS: BASOPHILS # (AUTO) 0.1 10^3/uL (0.0-0.1); BASOPHILS % (AUTO) 0.7 %; EOSINOPHILS # (AUTO) 0.4 10^3/uL (0.0-0.7); EOSINOPHILS % (AUTO) 5.4 %; HGB - HEMOGLOBIN 11.3 g/dL (14.0-18.0); LYMPHOCYTES # (AUTO) 1.9 10^3/uL (1.5-3.5); LYMPHOCYTES % (AUTO) 25.8 %; MEAN CORPUSCULAR HEMOGLOBIN 30.6 pg (27.0-31.0); MEAN CORPUSCULAR HGB CONC 32.2 g/dL (32.0-36.0); MEAN CORPUSCULAR VOLUME 95.1 fL (80.0-94.0); MEAN PLATELET VOLUME 10.1 fL (7.4-11.4); MONOCYTES # (AUTO) 0.9 10^3/uL (0.0-1.0); NEUTROPHILS % (AUTO) 55.7 %; PLT - PLATELET COUNT 224 10^3/uL (130-450); RED BLOOD COUNT 3.69 10^6/uL (4.70-6.10); RED CELL DISTRIBUTION WIDTH 14.3 % (12.0-15.0); WHITE BLOOD COUNT 7.2 x10^3/uL (4.8-10.8)
[2020-01-28 00:16] LABS: INR 1.5 (0.8-1.2); PT - PROTHROMBIN TIME 16.9 secs (9.9-12.6)
[2020-01-28 00:23] LABS: PARTIAL THROMBOPLASTIN TIME 31.8 secs (24.9-33.3)
[2020-01-28 00:29] LABS: ALBUMIN 3.7 g/dL (3.2-5.5); ALKALINE PHOSPHATASE 72 IU/L (42-121); ALT ALANINE AMINOTRANSFERASE < 10 IU/L (10-60); AST ASPARTATE AMINOTRANSFERASE 20 IU/L (10-42); BILIRUBIN,TOTAL 0.5 mg/dL (0.2-1.0); BUN - BLOOD UREA NITROGEN 36 mg/dL (6-20); CALCIUM 8.7 mg/dL (8.5-10.3); CARBON DIOXIDE - CO2 31 mmol/L (21-32); CHLORIDE 98 mmol/L (101-111); CREATININE 1.5 mg/dL (0.6-1.2); GLUCOSE 120 mg/dL (70-100); LIPASE 41 U/L (22-51); SODIUM 139 mmol/L (135-145); TOTAL PROTEIN 7.4 g/dL (6.7-8.2)
[2020-01-28 01:04] LABS: BILIRUBIN,URINE NEGATIVE (NEGATIVE); GLUCOSE, URINE (UA) NEGATIVE (NEGATIVE); KETONES,URINE (UA) NEGATIVE (NEGATIVE); LEUKOCYTE ESTERASE, URINE NEGATIVE (NEGATIVE); NITRITE,URINE NEGATIVE (NEGATIVE); OCCULT BLOOD,URINE NEGATIVE (NEGATIVE); PH,URINE 6.5 PH (5.0-7.5); PROTEIN,URINE NEGATIVE (NEGATIVE); UROBILINOGEN,URINE 0.2 (NORMAL) E.U./dL (NORMAL)
[2020-01-28 01:06] LABS: CLARITY,URINE CLEAR (CLEAR)
[2020-01-28 02:47] VITALS: BP 157/72
--- NOTE | 2020-01-28 09:16 | XRAY Report ---
PROCEDURE: Chest 1 View X-Ray INDICATIONS: syncope TECHNIQUE: One view of the chest was acquired. COMPARISON: 09/09/2019 FINDINGS: Surgical changes and devices: None. Lungs and pleura: No pleural effusions or pneumothorax. Lungs are clear. Mediastinum: Mediastinal contours appear normal. Heart size is enlarged. Bones and chest wall: No suspicious bony lesions. Overlying soft tissues appear unremarkable. IMPRESSION: No acute cardiopulmonary pathology. No discrepancies. Reviewed by: Anand Chen MD on 01/28/2020 9:14 AM PDT Approved by: Anand Chen MD on 01/28/2020 9:14 AM PDT Station ID: [id number]
--- NOTE | 2020-01-28 09:27 | CT Report ---
PROCEDURE: CERVICAL SPINE WO INDICATIONS: fall neck injury TECHNIQUE: Noncontrast 3 mm thick sections acquired from the skull base to the T4 level. Sagittal and coronal r eformats were then constructed. For radiation dose reduction, the following was used: automated exp osure control, adjustment of mA and/or kV according to patient size. COMPARISON: 08/26/2014. FINDINGS: Image quality: Excellent. Bones: No fractures or dislocations. Degenerative disc disease throughout cervical spine is seen mor e prominent at C5-6 and C6-7 levels. Visualized superior ribs are intact. Soft tissues: Prevertebral soft tissues are normal in thickness. No paravertebral hematomas. No ap ical pneumothoraces. IMPRESSION: 1. No acute cervical spine fracture or dislocation. 2. Degenerative disc disease throughout cervical spine as above. Reviewed by: Anand Chen MD on 01/28/2020 9:26 AM PDT Approved by: Anand Chen MD on 01/28/2020 9:26 AM PDT Station ID: [id number]
--- NOTE | 2020-01-28 09:27 | CT Report ---
PROCEDURE: HEAD WO INDICATIONS: fall head injury TECHNIQUE: Noncontrast 4.5 mm thick angled axial sections acquired from the foramen magnum to the vertex. For r adiation dose reduction, the following was used: automated exposure control, adjustment of mA and/or kV according to patient size. COMPARISON: 08/26/2014 FINDINGS: Image quality: Excellent. CSF spaces: Basal cisterns are patent. No extra-axial fluid collections. The ventricles are promin ent in size not significantly changed from 2014 study. Normal pressures hydrocephalus cannot be exclu ded. Brain: No intracranial bleeds or masses. There is cerebral volume loss for age, with resultant vent ricular and sulcal prominence. There are periventricular and deep white matter chronic small vessel ischemic changes. There is intracranial internal carotid artery atherosclerosis. Skull and face: Calvarium and visualized facial bones appear intact, without suspicious lesions. Sinuses: Visualized sinuses and mastoids are clear. IMPRESSION: 1. No CT evidence of acute intracranial pathology. 2. Atrophy and mild white matter chronic small vessel ischemic changes. 3. Prominence of the ventricles not significantly changed in size from 2014 study, and may represent normal pressure hydrocephalus. Reviewed by: Anand Chen MD on 01/28/2020 9:25 AM PDT Approved by: Anand Chen MD on 01/28/2020 9:25 AM PDT Station ID: [id number]
== END 2020-01-28 03:05 | disposition short-term general hospital (02) ==
LOC: EDUNIT# → ED 23:54
DX: R55 Syncope and collapse (principal); R79.89 Other specified abnormal findings of blood chemistry; R00.1 Bradycardia, unspecified; S00.81XA Abrasion of other part of head, initial encounter; W18.12XA Fall from or off toilet with subsequent striking against object, initial encounter; Y93.E8 Activity, other personal hygiene; Z95.0 Presence of cardiac pacemaker; Z79.01 Long term (current) use of anticoagulants; Z79.82 Long term (current) use of aspirin; M50.322 Other cervical disc degeneration at C5-C6 level
CPT/HCPCS: 36415; 70450; 71045; 72125; 80053; 80320; 81001; 81003; 82553; 83690; 83735; 83880; 84484; 85025; 85610; 85730; 87086; 93005; 99285; 99291

== ENCOUNTER 2020-01-28 03:07 | Outpatient (CLI) | payer MEDICARE, OTHER | END 2020-01-28 03:08 | disposition short-term general hospital (02) | LOC: EMS 03:07 | PROVIDERS: ATTEND Surgery | DX: R00.1 Bradycardia, unspecified (principal); R79.89 Other specified abnormal findings of blood chemistry; Z95.0 Presence of cardiac pacemaker | CPT/HCPCS: A0425; A0426 ==

== ENCOUNTER 2020-03-23 08:00 | Outpatient (CLI) | payer MEDICARE, OTHER | END 2020-03-23 23:59 | disposition home or self-care (01) | LOC: LAB.WCP 08:00 | PROVIDERS: ATTEND Physician Assistant Medical | DX: I48.91 Unspecified atrial fibrillation (principal); Z79.01 Long term (current) use of anticoagulants ==

== ENCOUNTER 2020-03-30 08:00 | Outpatient (CLI) | payer MEDICARE, OTHER | END 2020-03-30 23:59 | disposition home or self-care (01) | LOC: LAB.WCP 08:00 | PROVIDERS: ATTEND Physician Assistant Medical | DX: I48.91 Unspecified atrial fibrillation (principal); Z79.01 Long term (current) use of anticoagulants ==

== ENCOUNTER 2020-05-16 20:26 | Outpatient (CLI) | payer MEDICARE, OTHER | END 2020-05-16 20:27 | disposition short-term general hospital (02) | LOC: EMS 20:26 | PROVIDERS: ATTEND Surgery | DX: R41.82 Altered mental status, unspecified (principal) | CPT/HCPCS: A0425; A0427 ==

== ENCOUNTER 2020-07-09 08:00 | Outpatient (CLI) | payer MEDICARE, OTHER | END 2020-07-09 23:59 | disposition home or self-care (01) | LOC: LAB.WCP 08:00 | PROVIDERS: ATTEND Physician Assistant | DX: Z79.01 Long term (current) use of anticoagulants (principal) ==

== ENCOUNTER 2020-09-21 08:00 | Outpatient (CLI) | payer MEDICARE, OTHER | END 2020-09-21 23:59 | disposition home or self-care (01) | LOC: LAB.N 08:00 | PROVIDERS: ATTEND Physician Assistant Medical | DX: Z79.01 Long term (current) use of anticoagulants (principal) ==

== ENCOUNTER 2020-10-03 21:42 | Outpatient (CLI) | payer MEDICARE, OTHER | END 2020-10-03 21:43 | disposition left against medical advice (07) | LOC: EMS 21:42 | DX: Z03.89 Encounter for observation for other suspected diseases and conditions ruled out (principal) ==

== ENCOUNTER 2020-10-09 04:35 | Outpatient (CLI) | payer MEDICARE, OTHER | END 2020-10-09 04:36 | disposition EMS.NT | LOC: EMS 04:35 | DX: Z03.89 Encounter for observation for other suspected diseases and conditions ruled out (principal) ==

== ENCOUNTER 2020-10-09 16:45 | Outpatient (CLI) | payer MEDICARE, OTHER | END 2020-10-09 16:46 | disposition short-term general hospital (02) | LOC: EMS 16:45 | DX: R53.1 Weakness (principal) | CPT/HCPCS: A0425; A0429; A0888 ==